=== PATIENT | female | born 1985 | race Caucasian/White ===

== ENCOUNTER 2019-01-20 10:24 | Emergency (ER) | payer BC ==
[2019-01-20 10:55] VITALS: BP 117/83
--- NOTE | 2019-01-20 11:26 | UC ---
Hand/Wrist HPI - HPI Summary HPI Summary: 33 y/o female presents to the urgent care c/o Rt wrist pain w/ mild swelling for the past 3 days. Pt reports sometimes it has bother her in the past, but for the past 3 days pain has increase and yesterday she noticed it was swollen. Pain is 8/10 w/ certain movements, specially lifting. Pt has taken Tylenol which seems to help. However, next week she is leaving on vacation to [place]. Pt denies any trauma, numbness or tingling sensation over the Rt hand or fingers, SOB, chest pain, abdominal pain, N/V/D, dizziness, MCGREGOR of leg edema. - History Of Current Complaint Chief Complaint: UCUpperExtremity Stated Complaint: WRIST PAIN Time Seen by Provider: 01/20/19 11:20 Hx Obtained From: Patient Hx Last Menstrual Period: 12/25/17 ?: Yes - 26 weeks Onset/Duration: Gradual Onset, Lasting Days - 3 days Severity Initially: Mild Severity Currently: Moderate Pain Intensity: 8 Pain Scale Used: 0-10 Numeric Character Of Pain: Sharp Aggravating Factor(s): Lifting, Abduction, Pulling Alleviating Factor(s): Rest, OTC Meds Associated Signs And Symptoms: Positive: Swelling - mild swelling. Negative: Bruising, Fever, Weakness, Numbness/Tingling Related History: Dominant Hand Right - Allergies/Home Medications Allergies/Adverse Reactions: Allergies Allergy/AdvReac Type Severity Reaction Status Date / Time Sulfa (Sulfonamide Allergy Hives Verified 01/20/19 10:55 Antibiotics) Home Medications: Home Medications 95/Iron Fum/Folic/Dha [ + Dha Combo Pack] 1 tab PO DAILY [History Confirmed 01/20/19] PMH/Surg Hx/FS Hx/Imm Hx Previously Healthy: Yes - Pt denies PMHX - Surgical History Surgical History: None - Family History Known Family History: Positive: Hypertension - Social History Occupation: Employed Full-time Lives: With Family Alcohol Use: Rare Substance Use Type: None Smoking Status (MU): Never Smoked Tobacco - Immunization History Most Recent Influenza Vaccination: 07/13/13 Most Recent Tetanus Shot: 10/20/13 Most Recent Pneumonia Vaccination: none Review of Systems All Other Systems Reviewed And Are Negative: Yes Constitutional: Positive: Negative Skin: Positive: Other - mild swelling over the Rt wrist Eyes: Positive: Negative ENT: Positive: Negative Respiratory: Positive: Negative Cardiovascular: Positive: Negative Gastrointestinal: Positive: Negative Genitourinary: Positive: Negative Motor: Positive: Negative Neurovascular: Positive: Negative Musculoskeletal: Positive: Decreased ROM - RT wrist, Other: - RT wrist pain Neurological: Positive: Negative Psychological: Positive: Negative Is Patient Immunocompromised?: No Physical Exam - Summary Physical Exam Summary: Vital Signs Reviewed: Yes General: Well-Appearing, No Pain Distress, Well-Nourished female w/o any apparent pain distress Eyes: Positive: Conjunctiva Clear - PERRLA, EOMI ENT: Positive: Normal ENT inspection, Hearing grossly normal, Pharynx normal, TMs normal, Uvula midline Neck: Positive: Supple, Nontender, No Lymphadenopathy Respiratory: Positive: Chest non-tender, Lungs clear, Normal breath sounds, No respiratory distress Cardiovascular: Positive: RRR, No Murmur, Pulses Normal, Brisk Capillary Refill Abdomen Description: Positive: Nontender, No Organomegaly, Soft. Negative: CVA Tenderness (R), CVA Tenderness (L) Bowel Sounds: Positive: Present Musculoskeletal: Positive: Strength Intact, Other: Neurological Exam: Normal Musculoskeletal: Positive: Wrist: the R wrist is without obvious asymmetry or deformity when compared to the L wrist. No surface trauma, open wounds, mild swelling over the medial aspec of the Rt wrist, no obvious deformity. No overlying erythema or warmth. No bony crepitus. Point tenderness over the medial apsct of ther wrist , no thenar eminence tenderness. No scaphoid fullness or tenderness to direct palpation or axial load. Decreased ROM due to pain. Motor/sensory function of ulnar, radial, median nerves intact. Ulnar and radial pulses intact. Negative Phalens/Tinels sign. Positive Marguerite test . Triage Information Reviewed: Yes Vital Signs: Initial Vital Signs Temp 98 F 01/20/19 10:52 Pulse 55 01/20/19 10:52 Resp 17 01/20/19 10:52 BP 117/83 01/20/19 10:52 Pulse Ox 100 01/20/19 10:52 Hand/Wrist Course/Dx - Course Course Of Treatment: 33 y/o female presents to the urgent care c/o Rt wrist pain w/ mild swelling for the past 3 days. Pt reports sometimes it has bother her in the past, but for the past 3 days pain has increase and yesterday she noticed it was swollen. Pain is 8/10 w/ certain movements, specially lifting. Pt has taken Tylenol which seems to help. However, next week she is leaving on vacation to [place]. Pt denies any trauma, numbness or tingling sensation over the Rt hand or fingers, SOB, chest pain, abdominal pain, N/V/D, dizziness, MCGREGOR of leg edema. Hx obtained. Pt w/ possible DeQuervain Tenosynovitis on examination. Pt's educated on this tendonitis and Rt wrist immobilized w/ a thumb spica splint by the nurse. Pt neurovascular intact after splint placement. Pt advised to apply ice, continue taking Tylenol, avoid heavy lifting and f/u w/ Orthopedic from [facility] if not improvement of symptoms. D/C instructions explained. Pt understood and agreed w/ plan of care. - Differential Dx/Diagnosis Differential Diagnosis/HQI/PQRI: Contusion, Sprain, Strain, Tendonitis, Tenosynovitis Provider Diagnosis: Tenosynovitis, de Quervain, Acute pain of right wrist Discharge - Sign-Out/Discharge Documenting (check all that apply): Patient Departure - D/C home All imaging exams completed and their final reports reviewed: No - Discharge Plan Condition: Stable Disposition: HOME Patient Education Materials: De Quervain Disease (ED) Referrals: Sandra Sweeney MD [Primary Care Provider] - 1 Week [facility] [Provider Group] - 1 Week Additional Instructions: 1-Please take Tyelnol PO q6-8hrs prn as directed to alleviate pain and swelling. elevate your wrist, immerse it in ice water at times to alleviate pain and swelling 2-Please apply ice, keep your thumb immobilized with the splint. Avoid heavy lifting or strenuous exercise or repetitive motions 3- Please f/u with Orthopedic DR from [facility] or your PCP in 1 week is not improvement of symptoms for further evaluation and treatment. - Billing Disposition and Condition Condition: STABLE Disposition: Home
== END 2019-01-20 11:50 | disposition home or self-care (01) ==
LOC: UCEAST 10:24
DX: M65.4 Radial styloid tenosynovitis [de Quervain] (principal); M25.531 Pain in right wrist; Z88.2 Allergy status to sulfonamides
CPT/HCPCS: 99212; G0463

== ENCOUNTER 2019-04-23 02:42 | Inpatient (IN) | payer BC ==
[2019-04-23] MEDS ORDERED: Lactated Ringers 1000 ML Bag* 1,000 ML IV ONE ×2 (03:05→04:26)
[2019-04-23] MEDS ORDERED: Buffered Lidocaine 1% SYRIN* 1 ML/SYRINGE INTRADERM ONE (03:05)
--- NOTE | 2019-04-23 03:24 | HP ---
General Information - General Information Maternal Age: 28 Grav: 1 Para: 0 SAB: 0 IEA: 0 Estimated Due Date: 01/06/14 Determined By: Early Ultrasound Maternal Blood Type and Rh: O Positive - Results this Serology/RPR Result: Non-Reactive Rubella Result: Non-Immune HBsAg Result: Negative HIV Result: Negative GBS Culture Result: Negative Past Medical History Delivery History: Hx Uncomplicated Vaginal Delivery Pertinent Past Medical History: See Records - mitral valve prolapse, breast cysts Pertinent Past Surgical History: See Records - wisdom tooth extraction Pertinent Family History: See Records - hypertension, hypothyroidism - Antepartal Records Antepartal Records: Reviewed, Complicated by: - thrombocytopenia Review of Systems Constitutional: Uncomfortable CV Complaint: No Respiratory: Shortness of Breath: No Gastrointestinal: No Nausea/Vomiting, Normal Bowel Movement Genitourinary: No Dysuria, No Bleeding, No Leaking Fluid Musculoskeletal: No Epigastric Pain, Contractions Neurological: No Headache, No Visual Changes Movement: Normal Exam Allergies/Adverse Reactions: Allergies Sulfa (Sulfonamide Antibiotics) Allergy (Mild, Verified 04/23/19 02:56) Hives BP- 119/75, T-97.7, P-83, R-18 - Measurements Height: 5 ft 9 in Weight: 98.43 kg Body Mass Index (BMI): 32.0 Pre- Weight: 73.936 kg - Exam Breast: Breast Exam Deferred CVA: No CVA Tenderness Extremities: Edema - bilateral pedal edema Heart: Normal Rhythm/Heart Sounds HEENT: No Significant Findings Lungs: Clear Bilaterally Rectal: Rectal Exam Deferred Reflexes: DTR 2+ Thyroid: No Thyromegaly - Abdominal Exam Abdomen Exam: Non-Tender, Fundal Height Consistent with Dates - Ultrasound/Biophysical Profile Ultrasound Status: Not Done Targeted Exam Findings See L&D Outpatient Visit Provider Note for Findings: N/A Estimated Weight: 7.5# Cervical Exam: 5cm Effacement: 80% Station: 0 Presenting Part: Vertex Membrane Status: Intact Bleeding/Discharge: None EFM Findings - External Monitor Findings Baseline Heart Rate: 120 External Monitor Findings: Accelerations Present, No Pattern of Variable or Late Decelerations, Variability Moderate, Baseline Stable Contractions: Regular, Moderate, 45-90 Seconds Contraction Frequency: 1-5 minutes Assessment/Plan - Assessment 34 year old at 40 0/7 weeks gestation in active labor, complicated by thrombocytopenia, with intact membranes, no evidence of acidemia. Some BPs were elevated, but were taken during contractions, the one BP which was taken in between ctx was WNL. - Obstetrical Risk Factors Risk Factors Comment: Thrombocytopenia - Plan Plan: Admit - Anticipate Vaginal Delivery Plan Comment: Pt admitted to labor and delivery. Pt requesting pain relief. Will start IV and send CBC to check platelets. In the interim pt can try nitrous oxide. If desired and if platelets are high enough can consider epidural. Will send urine for protein, consider PEC labs if proteinuria, or continued elevated BPs. - Date/Time of Admission Date of Admission: 04/23/19 Time of Admission: 02:53
[2019-04-23 03:39] LABS: ABS Eosinophils 0.2 10^3/ul (0-0.6); ABS Lymphocytes 1.8 10^3/ul (1.0-4.8); ABS Monocytes 0.8 10^3/ul (0-0.8); ABS Neutrophils 9.5 10^3/ul (1.5-7.7); Eosinophil % 1.3 %; Hematocrit 39 % (35-47); Hemoglobin 13.4 g/dL (12.0-16.0); Lymphocyte % 14.9 %; Mean Corpuscular HGB Conc 34 g/dL (31-36); Mean Corpuscular Hemoglobin 31 pg (27-31); Mean Corpuscular Volume 90 fL (80-97); Mean Platelet Volume 11.6 fL (7.4-10.4); Platelet Count 102 10^3/uL (150-450); Red Blood Count 4.38 10^6 /uL (3.70-4.87); Red Cell Distribution Width 14 % (10-15); White Blood Count 12.4 10^3/uL (3.5-10.8)
[2019-04-23] MEDS ORDERED: OBEPIDURAL* 250 ML EPIDURAL ONE (03:51)
[2019-04-23] MEDS ORDERED: Lactated Ringers 1000 ML Bag* 1,000 ML IV SCH ×3 (04:00→09:00)
--- NOTE | 2019-04-23 04:05 | PN ---
Progress Note - Progress Note Date of Service: 04/23/19 SOAP: Subjective: Pt very uncomfortable, requests epidural. Using nitrous oxide, but states it does not provide adequate relief. Objective: FHR: 120 by intermittent auscultation UCs: 2-5 minutes, strong Leaking meconium stained fluid Cervix: 7cm/ 100%/ 0 station Platelets 102 Assessment: Pt making good progress, having some difficulty coping with pain. FHR does not show evidence of acidemia. Meconium stained fluid. Plan: Anesthesiologist Dr. Sanchez notified of pt's request for epidural, platelet count. He advised that pt is still a candidate for epidural, on his way to place. Anticipate .
[2019-04-23 04:07] LABS: Urine Benzodiazepine Screen None Detected (None Detect); Urine Opiates Screen None Detected (None Detect)
[2019-04-23] MEDS ORDERED: Famotidine TAB* 20 MG PO PRN (04:26)
[2019-04-23] MEDS ORDERED: EPHEDrine (Pressors)* 50 MG/ML VIAL IV PUSH PRN ×2 (04:26)
[2019-04-23] MEDS ORDERED: Phenylephrine 40 MCG/ML SYRINGE IV PUSH PRN ×2 (04:26)
[2019-04-23] MEDS ORDERED: Sodium Citrate/Citric Acid* 15 ML UDC PO PRN (04:26)
--- NOTE | 2019-04-23 04:51 | PN ---
Progress Note - Progress Note Date of Service: 04/23/19 SOAP: Subjective: Pt more comfortable with ctx, although still feeling a lot of pressure and discomfort at the peak of each ctx. Has some urge to push, at the peaks. Objective: Cervix: 8cm/ 100%/ 0 station/ vtx FHR: Baseline 120, moderate variability, early decels, occasional variable decels, resolved with position changes UCs: Q 2-3 minutes, strong Assessment: Pt making steady progress, reasonably comfortable with epidural, FHR with occasional variable decels which resolved with position change, currently Category I tracing. Plan: Anticipate .
[2019-04-23 04:59] LABS: Urine Appearance Cloudy; Urine Bacteria 1+ (Absent); Urine Bilirubin Negative (Negative); Urine Blood Negative (Negative); Urine Color Straw; Urine Glucose Negative (Negative); Urine Ketones Negative (Negative); Urine Nitrite Negative (Negative); Urine Protein Negative (Negative); Urine Red Blood Cell Absent (Absent); Urine Squamous Epithelial Cell Present (Absent); Urine Urobilinogen Negative (Negative); Urine White Blood Cell Trace(0-5/hpf) (Absent)
[2019-04-23] MEDS ORDERED: OBEPIDURAL* 250 ML EPIDURAL SCH (05:00)
--- NOTE | 2019-04-23 06:07 | PN ---
Progress Note - Progress Note Date of Service: 04/23/19 SOAP: Subjective: Pt reports increased pressure and increased urge to push, especially at the peak of ctx. Relaxed between ctx. Objective: Cervix: Anterior lip/ +1/ 100%/ vtx FHR: Baseline 125/ moderate variability/ + accels/ early decels UCs: Q 2-3 minutes Urine dip negative for protein BP 142/82 Assessment: Pt making good progress. No evidence of acidemia. Reasonably good pain relief for this point in labor. Plan: Wait for anterior lip to resolve or increased urge to push, then start trial of pushing. Anticipate .
[2019-04-23] MEDS ORDERED: Oxytocin in LR* 0 UNITS/0 ML BAG IVPB ONE (07:55)
[2019-04-23] MEDS ORDERED: Witch Hazel PAD* JAR TOPICAL PRN (08:21)
[2019-04-23] MEDS ORDERED: Acetaminophen TAB* 325 MG PO PRN (08:21)
[2019-04-23] MEDS ORDERED: Glycerin ADULT SUPP PR PRN (08:21)
[2019-04-23] MEDS ORDERED: Dibucaine 1% 28.35 GM TUBE PR PRN (08:21)
--- NOTE | 2019-04-23 09:20 | PROCNOTE ---
[facility] OB: Delivery Note - Delivery A Date of : 04/23/19 Time of : 07:47 [place] Sex: Male Weight at : 3.77 kg Score 1 Minute: 9 Score 5 Minutes: 9 Gestational Age in Weeks and Days at Delivery: 316 Weeks and 1 Days Delivery Method: Spontaneous Vaginal Labor: Spontaneous Did Patient attempt ?: N/A, No Previous Amniotic Fluid: Meconium Estimated Blood Loss: 200 Anesthesia/Analgesia: CEI for Labor, Nitrous-Labor Delivered By: Stephanie Alan - Nursery Level of Nursery: Regular/Bedside - Perineum Perineal Injury: Abrasion Only - Not Repaired - perineal and left labial abrasions Perineal Repair: None - Events Delivery Events of Note: Supplemental O2 to Mother - Additional Delivery Notes Additional Delivery Notes: Pt arrived on labor and delivery in active labor. SROM occurred soon after with small amount meconium stained fluid. Pt with thrombocytopenia during , platelets were 102 in labor, and after being cleared by anesthesia she requested and received an epidural with reasonable level of pain relief, after initial trial of nitrous oxide failed to provide adequate relief. Pt progressed steadily to full dilation, and began to push. Pt pushed effectively and made steady progress. FHR exhibited decelerations after pushes, as low as 80's, with good recovery to baseline. Utilized O2, position changes, IV fluids. Pt eventually progressed to . Pt coached through slow, controlled delivery of the head. Shoulders followed with maternal effort and gentle traction. Infant to maternal abdomen with vigorous cry, HR> 100. After pulsation ceased, cord clamped x2 and cut. Placenta soon delivered spontaneously, chandni side with gentle cord traction. Fundus was firm and bleeding minimal. Inspection of the perineum revealed small hemostatic perineal abrasion and small hemostatic left labial abrasion, not repaired. Infant and mother stable at this time, anticipate normal course.
[2019-04-23] MEDS: Docusate CAP* 100 MG PO SCH ×3 (11:22→20:15)
[2019-04-23] MEDS: Ibuprofen TAB* 600 MG PO PRN (15:38)
[2019-04-24] MEDS: Ibuprofen TAB* 600 MG PO PRN ×3 (00:12→12:19)
[2019-04-24 08:15] LABS: ABS Eosinophils 0.1 10^3/ul (0-0.6); ABS Lymphocytes 1.6 10^3/ul (1.0-4.8); ABS Monocytes 0.5 10^3/ul (0-0.8); ABS Neutrophils 8.6 10^3/ul (1.5-7.7); Eosinophil % 1.3 %; Hematocrit 36 % (35-47); Hemoglobin 12.4 g/dL (12.0-16.0); Lymphocyte % 14.6 %; Mean Corpuscular HGB Conc 35 g/dL (31-36); Mean Corpuscular Hemoglobin 32 pg (27-31); Mean Corpuscular Volume 91 fL (80-97); Red Blood Count 3.94 10^6 /uL (3.70-4.87); Red Cell Distribution Width 14 % (10-15); White Blood Count 10.8 10^3/uL (3.5-10.8)
[2019-04-24 08:48] VITALS: BP 113/76
[2019-04-24 09:00] LABS: Mean Platelet Volume 11.3 fL (7.4-10.4); Platelet Count 77 10^3/uL (150-450)
[2019-04-24] MEDS ORDERED: Ferrous Gluconate TAB* 324 MG TAB PO SCH (09:00)
[2019-04-24] MEDS: Docusate CAP* 100 MG PO SCH (09:07)
== END 2019-04-24 13:38 | disposition home or self-care (01) | DRG 560 ==
LOC: MCHOBOUT 02:42 → MCHOB 02:53
PROVIDERS: ADMIT Midwife; ATTEND Midwife
PROC: 10E0XZZ Delivery of Products of Conception, External Approach (ICD-10-PCS; principal; 2019-04-23)
DX: O99.12 Other diseases of the blood and blood-forming organs and certain disorders involving the immune mechanism complicating childbirth (principal); Z37.0 Single live birth; D69.6 Thrombocytopenia, unspecified; O77.0 Labor and delivery complicated by meconium in amniotic fluid; O70.0 First degree perineal laceration during delivery; O69.3XX0 Labor and delivery complicated by short cord, not applicable or unspecified; O76 Abnormality in fetal heart rate and rhythm complicating labor and delivery; Z3A.39 39 weeks gestation of pregnancy
CPT/HCPCS: 36415; 80307; 81003; 81015; 85025; 86850; 86900; 86901; 87086; A9270-GY